=== PATIENT | male | born 1955 | race Caucasian/White ===

== ENCOUNTER 2016-10-18 07:58 | Day surgery (SDC) | payer OTHER ==
[~2016-10-18] VITALS: Ht 193 cm; Wt 96.5 kg
[~2016-10-18 07:58] MED LIST: APIX5TAB PO; LISI10TA2 PO
--- NOTE | 2016-10-18 09:09 | RADRPT ---
PROCEDURE: Chest Radiograph. CLINICAL INDICATION: Preop. IVC filter removal. TECHNIQUE: Single frontal chest radiograph. COMPARISON: Chest radiograph 03/29/2016 FINDINGS: The cardiomediastinal silhouette is within normal limits. No infiltrate or effusion is seen. Th e bones are intact. IMPRESSION: 1. Unremarkable chest radiograph. RPTAT: AA .Corona Sotelo MD, MD Date Time Electronically viewed and signed by .Corona Sotelo MD, on 10/18/2016 09:09 .B/
[2016-10-18 09:14] VITALS: BP 141/79; PULSE 53; RESP 16; Ht 193 cm; Wt 96.5 kg
[2016-10-18 09:23] LABS: ADD SCAN DIFF NO
[2016-10-18 09:28] LABS: BASOPHILS % 0.6 % (0.0-2.0); EOSINOPHILS # 0.1 10^3/ul (0.0-0.5); EOSINOPHILS % 2.1 % (0.0-7.0); HEMATOCRIT 47.1 % (42.0-52.0); HEMOGLOBIN 15.8 g/dl (14.0-18.0); LYMPHOCYTES # 2.6 10^3/ul (0.8-2.9); LYMPHOCYTES % 39.3 % (15.0-51.0); MEAN CORPUSCULAR HEMOGLOBIN 31.4 pg (29.0-33.0); MEAN CORPUSCULAR HGB CONC 33.5 g/dl (32.0-37.0); MEAN CORPUSCULAR VOLUME 93.6 fl (82.0-101.0); MEAN PLATELET VOLUME 10.7 fl (7.4-10.4); MONOCYTE # 0.5 10^3/ul (0.3-0.9); MONOCYTES % 7.6 % (0.0-11.0); NEUTROPHIL # 3.3 10^3/ul (1.6-7.5); NEUTROPHILS % 50.2 % (39.0-77.0); PLATELET COUNT 210 10^3/UL (140-415); RED BLOOD COUNT 5.03 10^6/ul (4.70-6.10); WHITE BLOOD COUNT 6.6 10^3/ul (4.8-10.8)
[2016-10-18 09:44] LABS: POTASSIUM 4.3 mmol/L (3.5-5.1)
[2016-10-18 09:45] LABS: CREATININE 0.94 mg/dl (0.61-1.24)
[2016-10-18] MEDS ORDERED: ASPI-535 PO (09:46)
[2016-10-18 09:48] LABS: ADD UMIC YES; URINE BILIRUBIN (Dip) NEGATIVE (NEGATIVE); URINE BLOOD (Dip) 2+ (NEGATIVE); URINE COLOR LT. YELLOW (YELLOW); URINE GLUCOSE (Dip) NEGATIVE (NEGATIVE); URINE KETONES (Dip) NEGATIVE (NEGATIVE); URINE LEUKOCYTE ESTERASE (Dip) NEGATIVE (NEGATIVE); URINE NITRITE (Dip) NEGATIVE (NEGATIVE); URINE TOTAL PROTEIN (Dip) TRACE (NEGATIVE); URINE UROBILINOGEN (Dip) 1.0 E.U./dL (0.1-1.0)
[2016-10-18 09:55] LABS: CALCIUM 9.1 mg/dl (8.4-10.2)
[2016-10-18 09:56] LABS: INR 1.02; PROTIME 13.4 Sec (12.2-14.2)
[2016-10-18 09:57] LABS: PARTIAL THROMBOPLASTIN TIME 28.5 Sec (25.0-35.0)
[2016-10-18] MEDS ORDERED: LIDOCAINE 1% (MDV) 20 ML INJ ONE (12:29)
[2016-10-18] MEDS ORDERED: MIDAZOLAM 1 MG/ML 2 ML INJ ONE (12:29)
[2016-10-18] MEDS ORDERED: FENTAnyl 50 MCG/ML VIAL ONE (12:30)
--- NOTE | 2016-10-18 13:16 | PDOCDIS ---
Discharge Instructions CONDITION Patient Condition: Good HOME CARE INSTRUCTIONS: Diet Instructions: Regular ACTIVITY: Activity Restrictions: No Restrictions REFERRALS Other Referrals FOLLOWUP IN TWO WEEKS AT [facility] TANYA REYES MD Oct 18, 2016 13:15
[2016-10-18 13:40] VITALS: BP 151/89; PULSE 74; RESP 18
--- NOTE | 2016-10-18 14:25 | OPR ---
DATE OF OPERATION: 10/18/2016 PREOPERATIVE DIAGNOSIS: Previous history of left lower extremity deep venous thrombosis. POSTOPERATIVE DIAGNOSIS: Previous history of left lower extremity thrombosis. PROCEDURE: 1. Ultrasound-guided access of the right internal jugular vein. 2. Removal of the inferior vena cava filter. SURGEON: Ke Braun MD ANESTHESIA: Local with sedation. BLOOD LOSS: Minimal. COMPLICATIONS: None. HEPARIN: None. ACCESS: Right internal jugular vein. CLOSURE: Manual compression. INDICATIONS: This is a 61-year-old athletic gentleman whom had presented with left lower extremity deep vein thrombosis. The patient had sustained a left gastrocnemius injury in which soon after he had developed lower extremity DVT. The patient underwent thrombectomy and thrombolysis and during that time it was identified patient has an extensive amount of clot burden; therefore, an IVC filter was placed during our procedure. The patient has completed his 6 months of anticoagulation therapy and has been cleared for the removal of his IVC filter as he no longer needs it. The patient was informed of the alternatives, risks, and benefits. Risks including, but not limited to, bleeding, thrombosis, embolization, myocardial infarction, , stroke, device malfunction, infection, pneumothorax, nephrotoxicity and patient has agreed to proceed. DESCRIPTION OF PROCEDURE: The patient was brought into the angio suite and positioned in supine position. Sedation was administered without any complications. The neck and chest wall was shaved, prepped and draped in usual standard sterile fashion. Timeout was completed, verifying the correct patient , procedure and the site. Local anesthesia was then infiltrated in the region of the right neck. The patient's head was turned to the contralateral side. The catheter was then flushed with saline to ensure function of each of the ports for the [employer]. IVC filter removal kit. Landmarks were identified and ultrasound machine was used to confirm the internal jugular vein. It was in its usual anatomic location, the vein is compressible and had not have any pulsatile venous blood flow. At this point, the skin and subcutaneous tissue was anesthetized with 10 mL of 1% lidocaine. Using a 16-gauge needle, the vein was punctured and a Guidewire was advanced under direct ultrasound visualization. The guidewire was then advanced without any resistance or difficulty. A skin darby was then made at the insertion site and using Seldinger technique, a dilator was passed over the wire to dilate the subcutaneous tissue. The dilator was then exchanged for the IVC filter catheter device and it was smoothly advanced under fluoroscopic guidance. At this point, the removal guiding sheath was placed by the bilateral renal veins. The catheter was aspirated and flushed with heparinized saline solution. At this point, a venogram was performed in order to evaluate for any clot burden inferior to the vena cava filter and none was identified. At this point, using a snare wire, the IVC filter was hooked and removed. A completion venogram was performed and no extravasation or clot burden was identified. At this point, all sheaths, catheters and wires were removed and manual pressure was applied to the right neck area. The patient tolerated the procedure well and was taken to the postanesthesia care unit in stable condition. Dictated By: KE MONTE/DONI Conf#: [id number] DID#: [id number] MTDD
--- NOTE | 2016-10-18 17:20 | RADRPT ---
Vent Rate: 55 bpm RR Interval: 0 msec OK Interval: 160 msec QRS Duration: 94 msec QT Interval: 456 msec QTC Interval: 436 msec P-R-T Cullen: 50 - 60 - 54 degrees Sinus bradycardia Otherwise normal ECG Electronically Signed By: Law Silverman [id number]
== END 2016-10-18 14:15 | disposition home or self-care (01) ==
LOC: SDS 07:58
PROVIDERS: ATTEND Student in an Organized Health Care Education/Training Program
DX: Z45.89 Encounter for adjustment and management of other implanted devices (principal); Z86.718 Personal history of other venous thrombosis and embolism
CPT/HCPCS: 37193; 71010; 75825; 80048; 81001; 85025; 85610; 85730; 93005; C1769; J1644; J2250; J3010; Z7610; 81003

== ENCOUNTER 2017-11-11 10:43 | Day surgery (SDC) | END 2017-11-11 16:23 | disposition home or self-care (01) ==